=== PATIENT | male | born 1975 | race Caucasian/White ===

== ENCOUNTER 2020-03-28 05:57 | Day surgery (SDC) | payer OTHER, SELFPAY ==
[2020-03-21 07:53] LABS: BASOPHILS # (AUTO) 0.1 K/uL (0.00-0.22); BASOPHILS % (AUTO) 1.1 % (0.0-2.0); EOSINOPHILS # (AUTO) 0.3 K/uL (0-0.4); EOSINOPHILS % (AUTO) 2.8 % (0.0-4.0); HEMATOCRIT 49.2 % (36-52); HEMOGLOBIN 16.6 g/dL (12.0-18.0); LYMPHOCYTES # (AUTO) 3.1 K/uL (2.0-11.5); LYMPHOCYTES % (AUTO) 32.9 % (20.5-51.1); MEAN CORPUSCULAR HEMOGLOBIN 29 pg (27-31); MEAN CORPUSCULAR HGB CONC 34 g/dL (33-37); MEAN CORPUSCULAR VOLUME 86.9 fL (80-94); MONOCYTES # (AUTO) 0.7 K/uL (0.8-1.0); MONOCYTES % (AUTO) 7.3 % (1.7-9.3); NEUTROPHILS # (AUTO) 5.2 K/uL (1.8-7.7); NEUTROPHILS % (AUTO) 55.9 % (42.2-75.2); PLATELET COUNT (AUTO) 340 K/uL (140-450); RED BLOOD CELL COUNT(AUTO) 5.65 MIL/uL (4.20-6.10); RED CELL DISTRIBUTION WIDTH 13.9 % (11.6-13.7); WHITE BLOOD COUNT (AUTO) 9.3 K/uL (4.8-10.8)
[2020-03-21 08:02] LABS: ANION GAP 15.3 (8-16); CARBON DIOXIDE 24.1 mmol/L (21-32); CREATININE 1.1 mg/dL (0.6-1.3); POTASSIUM 4.4 mmol/L (3.5-5.1)
[~2020-03-28] VITALS: Ht 175.3 cm; Wt 102.1 kg
[2020-03-28] MEDS ORDERED: BUPIVACAINE-MPF/EPI 0.25% 10 ML VIAL INJ ONE (07:07)
[2020-03-28] MEDS ORDERED: LIDOCAINE 1% 500 MG/50 ML VIAL ONE (07:07)
[2020-03-28] MEDS ORDERED: PROPOFOL 200 MG/20 ML VIAL IV ONE (07:25)
[2020-03-28] MEDS ORDERED: SEVOFLURANE 250 ML BTL INH ONE (07:25)
[2020-03-28] MEDS ORDERED: MIDAZOLAM 2 MG/2 ML VIAL ONE (07:25)
[2020-03-28] MEDS ORDERED: DEXAMETHASONE 4 MG/ML VIAL ONE (07:25)
[2020-03-28] MEDS ORDERED: fentaNYL citrate 0.05 MG/ML VIAL ONE (07:25)
[2020-03-28] MEDS ORDERED: MEPERIDINE 25 MG/ML SYR IVP PRN (08:10)
[2020-03-28] MEDS ORDERED: diphenhydrAMINE 50 MG/ML VIAL IVP PRN (08:10)
[2020-03-28] MEDS ORDERED: HYDROmorphone 1 MG/ML AMP IVP PRN (08:10)
[2020-03-28] MEDS ORDERED: LACTATED RINGERS 1,000 ML IV SCH (08:10)
[2020-03-28] MEDS ORDERED: ONDANSETRON 4 MG/2 ML VIAL IVP PRN (08:10)
== END 2020-03-28 11:40 | disposition home or self-care (01) ==
LOC: MLB 05:57 → MFCC 06:18 → MLB 11:40
PROVIDERS: ATTEND Urology
DX: N43.3 Hydrocele, unspecified (principal); E66.9 Obesity, unspecified; Z68.39 Body mass index [BMI] 39.0-39.9, adult; Z20.828 Contact with and (suspected) exposure to other viral communicable diseases
CPT/HCPCS: 36415; 55040; 71045; 80048; 85025; J0690; J1100; J2001; J2250; J2704; J3010; J3490; J7060; U0003